=== PATIENT | male | born 1995 | race Caucasian/White ===

== ENCOUNTER 2017-07-05 17:12 | Emergency (ER) | payer OTHER ==
[~2017-07-05] VITALS: Ht 180.3 cm; Wt 74.0 kg
[2017-07-05 17:14] VITALS: TEMP 36.9; Ht 180.3 cm; Wt 74.0 kg
[2017-07-05] MEDS ORDERED: SODIUM CHLORIDE 0.9% 1000ML 1,000 ML IV STA (17:35)
[2017-07-05] MEDS ORDERED: KETOROLAC TROMETHAMINE 30 MG/ML VIAL IV STA (17:35)
[2017-07-05] MEDS ORDERED: ONDANSETRON 8 MG/54 ML D5W IV STA (17:35)
--- NOTE | 2017-07-05 17:37 | EMERGENCY ROOM VISIT NOTE ---
History Report prepared by Bev: Kaylee Kirkpatrick Under the Supervision of: Ivan HowardO. First contact with patient: 17:25 Chief Complaint: ABDOMINAL PAIN Stated Complaint: INTENSE PAIN IN ABD, R SIDE, NAUSEA History of Present Illness The patient is a 21 year old male who presents to the Emergency Room with complaints of right-sided abdominal pain beginning 2 days ago. He states that 4 days ago, he noticed a sharp pain in his abdomen, and that it radiated to where he thinks his appendix is, but that the pain worsened 2 days ago. The patient states that 2 nights ago, he vomited and had a fever. He also reports having loose stool and a cough. He states that today he has been nauseous and that he cannot take deep breaths because that exacerbates the pain. States friend was recently ill also. Pt denies headache, change in vision, chest pain, shortness of breath, pain with urination, and melena. No blood in emesis. No recurrent fevers since Thursday. Source of History: patient Onset: 2 days ago Position: abdomen (RLQ) Timing: worsening Modifying Factors (Worsening): breathing (deep breaths) Associated Symptoms: + fevers, + cough, + nausea, + vomiting, + diarrhea ( loose stool), No headache, No chest pain, No SOB, No melena Review of Systems See HPI for pertinent positives & negatives. A total of 10 systems reviewed and were otherwise negative. Past Medical & Surgical Medical Problems: (1) No active medical problems Surgical Problems: (1) H/O cardiac radiofrequency ablation Family History FHx: cancer Social History Smoking Status: Never Smoker Housing Status: lives with roommate Occupation Status: [employer] student Current/Historical Medications No Active Prescriptions or Reported Meds Allergies Coded Allergies: Hydrocodone (Verified Adverse Reaction, Unknown, GI SYMPTOMS, 07/05/17) Oxycodone (Verified Adverse Reaction, Unknown, GI SYMPTOMS, 07/05/17) Physical Exam Vital Signs Date Time Temp Pulse Resp B/P (MAP) Pulse Ox O2 Delivery O2 Flow Rate FiO2 07/05/17 20:55 73 18 137/71 98 07/05/17 18:45 82 18 152/56 99 Room Air 07/05/17 17:14 36.9 95 16 158/84 97 Room Air Physical Exam GENERAL: alert, well appearing, well nourished, no distress, non-toxic EYE EXAM: normal conjunctiva, PERRL and EOM's grossly intact OROPHARYNX: no exudate, no erythema, lips, buccal mucosa, and tongue normal and mucous membranes are moist NECK: supple, no nuchal rigidity, no adenopathy, non-tender LUNGS: Clear to auscultation. Normal chest wall mechanics HEART: no murmurs, S1 normal and S2 normal ABDOMEN: abdomen soft, RUQ tenderness along right costal margin, normo-active bowel sounds, no masses, no rebound or guarding. Negative McBurney's point. BACK: Back is symmetrical on inspection and there is no deformity, no midline tenderness, no CVA tenderness. SKIN: no rashes and no bruising UPPER EXTREMITIES: upper extremities are grossly normal. LOWER EXTREMITIES: No pitting edema. NEURO EXAM: Normal sensorium, cranial nerves II-XII grossly intact, normal speech, no gross weakness of arms, no gross weakness of legs. No drift. Finger to nose intact. Gross sensation intact. Medical Decision & Procedures ER Provider Diagnostic Interpretation: Radiology results have been interpreted by the radiologist and reviewed by me. ABDOMEN LIMITED (US) HISTORY: Pain. Nausea. ruq pain. COMPARISON: None. FINDINGS: Pancreas: The pancreas demonstrates a normal echotexture. Liver: Unremarkable. Gallbladder: No gallbladder wall thickening. No gallstones. CBD: 3 mm Right kidney: No hydronephrosis. IMPRESSION: No significant abnormality identified within the within the right upper quadrant. The above report was generated using voice recognition software. It may contain grammatical, syntax or spelling errors. Electronically signed by: Kostas Watts M.D. 07/05/2017 8:10 PM Dictated Date/Time: 07/05/2017 8:10 PM Laboratory Results 07/05/17 18:00 Red Blood Count 4.97, Mean Corpuscular Volume 89.7, Mean Corpuscular Hemoglobin 33.6, Mean Corpuscular Hemoglobin Concent 37.4, Mean Platelet Volume 10.0, Neutrophils (%) (Auto) 77.4, Lymphocytes (%) (Auto) 13.5, Monocytes (%) (Auto) 7.4, Eosinophils (%) (Auto) 1.4, Basophils (%) (Auto) 0.2, Neutrophils # (Auto) 6.77, Lymphocytes # (Auto) 1.18, Monocytes # (Auto) 0.65, Eosinophils # (Auto) 0.12, Basophils # (Auto) 0.02 07/05/17 18:00 Test 07/05/17 18:00 White Blood Count 8.75 K/uL (4.8-10.8) Red Blood Count 4.97 M/uL (4.7-6.1) Hemoglobin 16.7 g/dL (14.0-18.0) Hematocrit 44.6 % (42-52) Mean Corpuscular Volume 89.7 fL (80-100) Mean Corpuscular Hemoglobin 33.6 pg (25-34) Mean Corpuscular Hemoglobin Concent 37.4 g/dl (32-36) Platelet Count 165 K/uL (130-400) Mean Platelet Volume 10.0 fL (7.4-10.4) Neutrophils (%) (Auto) 77.4 % Lymphocytes (%) (Auto) 13.5 % Monocytes (%) (Auto) 7.4 % Eosinophils (%) (Auto) 1.4 % Basophils (%) (Auto) 0.2 % Neutrophils # (Auto) 6.77 K/uL (1.4-6.5) Lymphocytes # (Auto) 1.18 K/uL (1.2-3.4) Monocytes # (Auto) 0.65 K/uL (0.11-0.59) Eosinophils # (Auto) 0.12 K/uL (0-0.5) Basophils # (Auto) 0.02 K/uL (0-0.2) RDW Standard Deviation 40.2 fL (36.4-46.3) RDW Coefficient of Variation 12.2 % (11.5-14.5) Immature Granulocyte % (Auto) 0.1 % Immature Granulocyte # (Auto) 0.01 K/uL (0.00-0.02) Anion Gap 9.0 mmol/L (3-11) Est Creatinine Clear Calc Drug Dose 113.1 ml/min Estimated GFR () 112.2 Estimated GFR (Non- 96.8 BUN/Creatinine Ratio 8.6 (10-20) Calcium Level 9.1 mg/dl (8.5-10.1) Total Bilirubin 0.8 mg/dl (0.2-1) Aspartate Amino Transf (AST/SGOT) 26 U/L (15-37) Alanine Aminotransferase (ALT/SGPT) 24 U/L (12-78) Alkaline Phosphatase 74 U/L (45-117) Total Protein 7.8 gm/dl (6.4-8.2) Albumin 4.2 gm/dl (3.4-5.0) Globulin 3.6 gm/dl (2.5-4.0) Albumin/Globulin Ratio 1.2 (0.9-2) Lipase 150 U/L (73-393) Laboratory results per my review. Medications Administered Medications (Trade) Dose Ordered Sig/Josafat Route Start Time Stop Time Status Last Admin Dose Admin Sodium Chloride 1,000 ml @ 999 mls/hr Q1H1M STAT IV 07/05/17 17:35 07/05/17 18:35 DC 07/05/17 17:35 999 MLS/HR Ondansetron HCl (Zofran 8mg Iv) 8 mg NOW STAT IV 07/05/17 17:35 07/05/17 17:36 DC 07/05/17 17:57 8 MG Ketorolac Tromethamine (Toradol Inj) 30 mg NOW STAT IV 07/05/17 17:35 07/05/17 17:36 DC 07/05/17 17:58 30 MG Famotidine (Pepcid Tab) 20 mg NOW ONCE PO 07/05/17 18:45 07/05/17 18:46 DC 07/05/17 18:44 20 MG ED Course 1730: The patient was evaluated in room C10. A complete history and physical exam was performed. 1734: Ordered Toradol Inj 30 mg IV, Ondansetron HCl 8 mg IV, Sodium Chloride 1, 000 ml @ 999 mls/hr IV. 1844: Ordered Pepcid Tab 20 mg PO. 1847: I updated the patient. He states that his nausea is better. He is not having the abdominal pain, but he is sitting down. 2030: The patient feels better and he has minimal pain while ambulating. 2039: Upon reevaluation, the patient is feeling better. I discussed the findings and the treatment plan with the patient. He verbalizes agreement and understanding. He was discharged home. Medical Decision Differential diagnosis: Etiologies such as appendicitis, diverticulitis, PUD, biliary pathology, UTI, pancreatitis, obstruction, mesenteric ischemia, aortic pathology, infections, inflammatory bowel disease, renal colic, as well as others were entertained. Pt well appearing despite complaints. labs and imaging reassuring. Pt improved with toradol here. Given no leukocytosis after several days of sx, doubt acute appy. Doubt other acute GI pathology. Did not feel pt warranted additional abdominal imaging at this time. VS stable. pt tolerating po. Doubt sbo, perf, colitis, gu pathology. Likely viral syndrome given close friend recently ill with similar sx also. Discussed f/u, sx to watch/return for , he verbalized understanding and was agreeable with plan. Medication Reconcilliation Current Medication List: was personally reviewed by me Blood Pressure Screening Patient's blood pressure: Elevated blood pressure Blood pressure disposition: Elevated BP felt to be situational Impression Primary Impression: Right upper quadrant abdominal pain Scribe Attestation The scribe's documentation has been prepared under my direction and personally reviewed by me in its entirety. I confirm that the note above accurately reflects all work, treatment, procedures, and medical decision making performed by me. Departure Information Dispostion Home / Self-Care Prescriptions No Active Prescriptions or Reported Meds Referrals No Doctor, Assigned (PCP) Forms HOME CARE DOCUMENTATION FORM, IMPORTANT VISIT INFORMATION Patient Instructions My [facility] Additional Instructions Please drink plenty of clear liquids to stay well-hydrated. Please eat a light diet and avoid any foods which are acidic and could irritate her stomach including alcohol, coffee, soda, tomato-based products, citrus fruits. If you have any worsening pain, develop vomiting, fevers, noticed black or bloody stools, develop diarrhea, or you've any other new concerns, please return the emergency room.
[2017-07-05 18:10] LABS: BASO % 0.2 %; BASO ABS # 0.02 K/uL (0-0.2); COMPLETE YES; EOS % 1.4 %; HEMATOCRIT 44.6 % (42-52); IG% 0.1 %; LYMPH % 13.5 %; LYMPH ABS # 1.18 K/uL (1.2-3.4); MEAN CELL VOLUME 89.7 fL (80-100); MEAN CORPUSCULAR HEMOGLOBIN 33.6 pg (25-34); MEAN CORPUSCULAR HGB CONC 37.4 g/dl (32-36); MONO % 7.4 %; NEUT % 77.4 %; PLATELET COUNT 165 K/uL (130-400); RED BLOOD COUNT 4.97 M/uL (4.7-6.1); WHITE BLOOD COUNT 8.75 K/uL (4.8-10.8)
[2017-07-05 18:25] LABS: BUN/CREATININE RATIO 8.6 (10-20); CALCIUM 9.1 mg/dl (8.5-10.1); CREATININE 1.1 mg/dl (0.60-1.40); POTASSIUM 3.9 mmol/L (3.5-5.1)
[2017-07-05 18:28] LABS: ALB/GLOB RATIO 1.2 (0.9-2)
[2017-07-05] MEDS ORDERED: FAMOTIDINE 20 MG TAB PO ONE (18:45)
--- NOTE | 2017-07-05 20:11 | DIAGNOSTIC IMAGING REPORT ---
ABDOMEN LIMITED (US) HISTORY: Pain. Nausea. ruq pain. COMPARISON: None. FINDINGS: Pancreas: The pancreas demonstrates a normal echotexture. Liver: Unremarkable. Gallbladder: No gallbladder wall thickening. No gallstones. CBD: 3 mm Right kidney: No hydronephrosis. IMPRESSION: No significant abnormality identified within the within the right upper quadrant. The above report was generated using voice recognition software. It may contain grammatical, syntax or spelling errors. Electronically signed by: Kostas Watts M.D. 07/05/2017 8:10 PM Dictated Date/Time: 07/05/2017 8:10 PM
[2017-07-05 20:55] VITALS: BP 137/71; PULSE 73; O2SAT 98
== END 2017-07-05 20:55 | disposition home or self-care (01) ==
LOC: C.EDB 17:13 → C.EDC 20:55
DX: R10.11 Right upper quadrant pain (principal); Z80.9 Family history of malignant neoplasm, unspecified